=== PATIENT | female | born 1985 | race Caucasian/White ===

== ENCOUNTER → 2025-06-23 | Outpatient (CLI) | payer BC | END | disposition home or self-care (01) | LOC: US 08:25 | PROVIDERS: ATTEND Nurse Practitioner Women's Health | DX: N83.01 Follicular cyst of right ovary (principal); N85.2 Hypertrophy of uterus; R93.89 Abnormal findings on diagnostic imaging of other specified body structures; N92.0 Excessive and frequent menstruation with regular cycle ==

== ENCOUNTER → 2025-06-30 | Outpatient (CLI) | payer BC | END | disposition home or self-care (01) | LOC: LAB 10:07 | PROVIDERS: ATTEND Nurse Practitioner Women's Health | DX: N92.0 Excessive and frequent menstruation with regular cycle (principal) ==